=== PATIENT | male | born 1930 | race Caucasian/White ===

== ENCOUNTER → 2016-06-30 | Outpatient (CLI) | payer OTHER ==
[~2016-06-30] MED LIST: ACETAMINOPHEN325 M1 PO; ADULT LOW DOSE81 MG PO; ADVAIR 250-501 EACH IH; ALIGN4 MG PO; ASPIRIN81 MG PO; AVELOX OR; BISACODYL SUPP10 MG RE; CANASA1000 MG PO; CANASA1000 MG RECTAL; CHOLESTEROL MED PO; CIPRO500 MG PO; COLACE100 MG PO; COMBIVENT IN; ELIQUIS5 MG PO; FAMOTIDINE 10 M10 MG PO; FEVERALL JR 32325 MG RE; FLAGYL500 MG PO; FLAXSEED1000 MG PO; FLECAINIDE ACET50 M1 PO; GLUCOSA-CHOND-1 EACH PO; HYDROCODON-ACE1 EAC7 PO; HYDROXYZINE PAM50 MG PO; LANOXIN 0.250.25 M1 PO; MOM; MUCINEX DM TABL1 TA1 PO; MULTI VITAMIN1 EACH PO; MYLANTA 12 OZ355 M1 PO; NEURONTIN 300300 M1 PO; OMEPRAZOLE40 MG PO; PREDNISONE 10 M10 M1 PO; PREDNISONE 20 M20 MG PO; SENOKOT-S TABL1 EACH PO; SIMVASTATIN20 MG PO; VITAMIN E100 UNI2 PO
== END ==
LOC: RAD 07:57
DX: R05 Cough (principal)

== ENCOUNTER → 2016-07-08 | Outpatient (CLI) | payer OTHER | LOC: CAT 08:36 | DX: R91.1 Solitary pulmonary nodule (principal); M47.814 Spondylosis without myelopathy or radiculopathy, thoracic region; K80.20 Calculus of gallbladder without cholecystitis without obstruction ==

== ENCOUNTER 2016-09-15 08:41 | Inpatient (IN) | payer OTHER ==
[~2016-09-15] VITALS: Ht 177.8 cm; Wt 83.5 kg
[2016-09-15 09:10] VITALS: BP 124/74
[2016-09-15 15:18] LABS: URINE BILIRUBIN NEGATIVE (Negative); URINE BLOOD TRACE (Negative); URINE COLOR YELLOW; URINE GLUCOSE-RANDOM* NEGATIVE (Negative); URINE KETONES TRACE (Negative); URINE LEUKOCYTES-REFLEX NEGATIVE (Negative); URINE PROTEIN (DIPSTICK) NEGATIVE (Negative); URINE SPECIFIC GRAVITY <= 1.005 (1.003-1.035); URINE UROBILINOGEN 0.2 E.U./dl (0.2-1.0)
[2016-09-15 17:03] LABS: HEMATOCRIT 42.1 % (42.0-52.0); HEMOGLOBIN 14.2 gm/dL (14.0-18.0); MCH 31.5 pg (26.0-34.0); MCHC 33.7 g/dL (28.0-37.0); MCV 93.5 fL (80.0-100.0); RBC 4.51 mil/uL (4.50-6.00); RDW 14.1 % (10.5-14.5); WBC 10.6 thou/uL (4.0-11.0)
[2016-09-15 17:14] LABS: CALCIUM 9.1 mg/dL (8.5-10.1); POTASSIUM 4.1 mmol/L (3.5-5.1)
[2016-09-15 20:00] VITALS: BP 122/62
[2016-09-16] VITALS (7 sets, daily range): BP systolic 141–168; BP diastolic 61–82
[2016-09-16 10:00] LABS: INR 1.1; PROTIME 11.4 Seconds (9.3-11.4)
[2016-09-17 04:22] VITALS: BP 121/65
[2016-09-17 07:20] VITALS: BP 94/51
[2016-09-17] MEDS ORDERED: TIZANIDINE HCL 22 M1 PO (07:54)
[2016-09-17 16:02] VITALS: BP 81/46
[2016-09-17 19:18] VITALS: BP 99/56
[2016-09-18] MEDS ORDERED: HYDROCODON-ACE1 EAC7 PO (07:25)
[2016-09-18 08:58] VITALS: BP 105/54
[2016-09-18 15:47] VITALS: BP 104/55
[2016-09-18 19:18] VITALS: BP 120/57
[2016-09-19 04:47] VITALS: BP 131/62
[2016-09-19 07:30] VITALS: BP 131/63
[2016-09-19 15:35] VITALS: BP 124/52
[2016-09-19 19:15] VITALS: BP 142/73
[2016-09-20 03:45] VITALS: BP 133/74
[2016-09-20 07:20] VITALS: BP 137/68
== END 2016-09-20 13:10 | DRG 517 ==
LOC: 5S 08:41
PROVIDERS: Family Medicine; Radiology Vascular & Interventional Radiology
PROC: 0PU43JZ Supplement Thoracic Vertebra with Synthetic Substitute, Percutaneous Approach (ICD-10-PCS; principal; 2016-09-16)
PROC: 0PS43ZZ Reposition Thoracic Vertebra, Percutaneous Approach (ICD-10-PCS; principal; 2016-09-16)
DX: M48.54XA Collapsed vertebra, not elsewhere classified, thoracic region, initial encounter for fracture (principal); Z96.652 Presence of left artificial knee joint; M10.9 Gout, unspecified; Z96.649 Presence of unspecified artificial hip joint; K21.9 Gastro-esophageal reflux disease without esophagitis; I48.91 Unspecified atrial fibrillation; K52.9 Noninfective gastroenteritis and colitis, unspecified; E78.5 Hyperlipidemia, unspecified; Z86.718 Personal history of other venous thrombosis and embolism; Z79.899 Other long term (current) drug therapy
CPT/HCPCS: 10785; 50850; 62110; 62900; 70005

== ENCOUNTER 2017-02-11 08:00 | Inpatient (IN) | payer OTHER ==
[~2017-02-11] VITALS: Ht 177.8 cm; Wt 79.4 kg
--- NOTE | ~2017-02-11 | EKG ---
[place] [address] [facility] [place] [address] ELECTROCARDIOGRAM REPORT Name: JIMI ANGLIN [id number] Admission: 02/11/17 Attend Phys: Discharge: Date of : 10/29/[birth year] Report #: [id number] THIS REPORT FOR: //name// [facility] ED Test Date: 2017-02-11 Test Time: 08:20:39 Pat Name: JMII ANGLIN Department: Room: Gender: Director Internal Communications: MELVIN : 1930 Requested By: Tahira Aiken Order Number: [id number] MD: Da Patel Measurements Intervals [place] Rate: 95 P: 34 MD: 197 QRS: 39 QRSD: 79 T: 23 QT: 339 QTc: 426 Interpretive Statements Sinus rhythm No significant abnormality Compared to ECG 06/24/2009 08:28:15 Sinus tachycardia no longer present Electronically Signed On 02-11-2017 9:03:14 PIPE INSTALLER by Da Patel [email or web address] <ELECTRONICALLY SIGNED> By: Da Patel MD, [facility] 02/11/17902 9 9 Da Patel MD, FACC /EPI
[~2017-02-11 08:00] MED LIST changes: +TIZANIDINE HCL 22 M1 PO
[2017-02-11 08:05] VITALS: BP 94/56
[2017-02-11 08:42] LABS: HEMATOCRIT 40.6 % (42.0-52.0); HEMOGLOBIN 13.5 gm/dL (14.0-18.0); MCHC 33.3 g/dL (28.0-37.0); MCV 93.3 fL (80.0-100.0); PLATELET COUNT 298 thou/uL (150-400); RBC 4.35 mil/uL (4.50-6.00); RDW 13.5 % (10.5-14.5)
[2017-02-11 08:45] LABS: MANUAL DIFF YES
[2017-02-11 08:47] LABS: ANION GAP 6 mmol/L (7-16); BUN 20 mg/dL (7-18); CALCIUM 9.3 mg/dL (8.5-10.1); CHLORIDE 103 mmol/L (98-107); CO2 30 mmol/L (21-32); CREATININE 1.3 mg/dL (0.7-1.3); GLUCOSE 165 mg/dL (74-106); SODIUM 139 mmol/L (136-145)
[2017-02-11 08:56] LABS: TROPONIN-I < 0.04 ng/mL (<0.06)
[2017-02-11 09:01] LABS: ABSOLUTE NEUTROPHILS 14.1 thou/uL (1.4-8.2); TOTAL CELL COUNT 100
[2017-02-11 09:02] LABS: ANISOCYTOSIS SLIGHT
[2017-02-11 09:43] LABS: URINE BILIRUBIN NEGATIVE (Negative); URINE BLOOD NEGATIVE (Negative); URINE COLOR YELLOW; URINE GLUCOSE-RANDOM* NEGATIVE (Negative); URINE KETONES NEGATIVE (Negative); URINE LEUKOCYTES-REFLEX NEGATIVE (Negative); URINE PROTEIN (DIPSTICK) NEGATIVE (Negative)
[2017-02-11 11:22] VITALS: BP 106/54
[2017-02-11 11:59] VITALS: BP 112/56
[2017-02-11 12:25] VITALS: BP 112/57
[2017-02-11 16:09] VITALS: BP 98/48
[2017-02-11 20:15] VITALS: BP 92/50
[2017-02-12 04:02] VITALS: BP 114/54
[2017-02-12 06:29] LABS: HEMATOCRIT 35.2 % (42.0-52.0); HEMOGLOBIN 11.7 gm/dL (14.0-18.0); MCH 31.2 pg (26.0-34.0); MCHC 33.2 g/dL (28.0-37.0); MCV 94.2 fL (80.0-100.0); RBC 3.73 mil/uL (4.50-6.00); RDW 13.7 % (10.5-14.5); WBC 8.1 thou/uL (4.0-11.0)
[2017-02-12 06:50] LABS: ALBUMIN 2.9 g/dL (3.4-5.0); CALCIUM 8.5 mg/dL (8.5-10.1); CREATININE 1.1 mg/dL (0.7-1.3); POTASSIUM 3.9 mmol/L (3.5-5.1); TOTAL BILIRUBIN 1.2 mg/dL (<0.1-1.0); TOTAL PROTEIN 6.1 g/dL (6.4-8.2)
[2017-02-12 07:35] VITALS: BP 107/47
[2017-02-12 16:15] VITALS: BP 107/47
[2017-02-12 20:00] VITALS: BP 149/57
[2017-02-13 04:30] VITALS: BP 156/85
[2017-02-13 07:35] VITALS: BP 98/45
[2017-02-13 10:44] LABS: CALCIUM 8.6 mg/dL (8.5-10.1); CREATININE 0.9 mg/dL (0.7-1.3); POTASSIUM 3.5 mmol/L (3.5-5.1)
[2017-02-13 16:00] VITALS: BP 112/59
[2017-02-13 19:13] VITALS: BP 120/60
[2017-02-14 03:23] VITALS: BP 125/69
[2017-02-14 08:44] VITALS: BP 116/57
[2017-02-14 15:50] VITALS: BP 132/65
[2017-02-14 19:10] VITALS: BP 107/44
[2017-02-15 03:45] VITALS: BP 128/62
[2017-02-15 08:16] VITALS: BP 116/66
[2017-02-15 11:27] LABS: HEMATOCRIT 35.6 % (42.0-52.0); HEMOGLOBIN 11.8 gm/dL (14.0-18.0); MCH 31.3 pg (26.0-34.0); MCHC 33.3 g/dL (28.0-37.0); MCV 94.1 fL (80.0-100.0); RBC 3.79 mil/uL (4.50-6.00); RDW 13.2 % (10.5-14.5); WBC 8.6 thou/uL (4.0-11.0)
[2017-02-15 11:45] LABS: ALBUMIN 2.6 g/dL (3.4-5.0); CALCIUM 8.8 mg/dL (8.5-10.1); CREATININE 0.9 mg/dL (0.7-1.3); POTASSIUM 3.6 mmol/L (3.5-5.1); TOTAL BILIRUBIN 1.5 mg/dL (<0.1-1.0); TOTAL PROTEIN 6.6 g/dL (6.4-8.2)
[2017-02-15 15:23] VITALS: BP 03/57
[2017-02-15 20:00] VITALS: BP 105/53
[2017-02-16 04:30] VITALS: BP 140/73
[2017-02-16 10:30] VITALS: BP 140/73
[2017-02-16 15:29] VITALS: BP 115/48
[2017-02-16 19:27] VITALS: BP 120/61
[2017-02-17 04:55] VITALS: BP 121/54
[2017-02-17 07:55] VITALS: BP 115/50
[2017-02-17] MEDS ORDERED: PREDNISONE 10 M10 MG PO (12:39)
[2017-02-17] MEDS ORDERED: AUGMENTIN 875-1 EACH PO (12:41)
== END 2017-02-17 15:09 | DRG 871 ==
LOC: ER 08:00 → 4E 10:38 → EROBS 10:38 → 4E 12:02
PROVIDERS: Emergency Medicine; Family Medicine
DX: A41.9 Sepsis, unspecified organism (principal); J69.0 Pneumonitis due to inhalation of food and vomit; N17.9 Acute kidney failure, unspecified; Z96.652 Presence of left artificial knee joint; M11.20 Other chondrocalcinosis, unspecified site; Z96.649 Presence of unspecified artificial hip joint; I50.9 Heart failure, unspecified; Z86.718 Personal history of other venous thrombosis and embolism; Z87.891 Personal history of nicotine dependence
CPT/HCPCS: 10183

== ENCOUNTER 2017-02-24 07:57 | Inpatient (IN) | payer OTHER ==
[~2017-02-24] VITALS: Ht 177.8 cm; Wt 81.0 kg
[2017-02-24] VITALS (7 sets, daily range): BP systolic 99–124; BP diastolic 50–56
--- NOTE | ~2017-02-24 | EKG ---
[address] [address] ELECTROCARDIOGRAM REPORT Name: LINNETTE,JIMI Gunter Room #: 431-P ADM IN M.R.#: [id number] Admission: 02/24/17 Attend Phys: Ritchie Epps MD Discharge: Date of : 10/29/28 Report #: [id number] THIS REPORT FOR: //name// 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
[~2017-02-24 07:57] MED LIST changes: +AUGMENTIN 875-1 EACH PO; +PREDNISONE 10 M10 MG PO
[2017-02-24 08:55] LABS: HEMATOCRIT 39.3 % (42.0-52.0); MCH 31.1 pg (26.0-34.0); MCHC 33.1 g/dL (28.0-37.0); MCV 93.9 fL (80.0-100.0); PLATELET COUNT 398 thou/uL (150-400); RBC 4.19 mil/uL (4.50-6.00); RDW 13.6 % (10.5-14.5); WBC 20.5 thou/uL (4.0-11.0)
[2017-02-24 09:00] LABS: MANUAL DIFF YES
[2017-02-24 09:02] LABS: CALCIUM 8.9 mg/dL (8.5-10.1); CREATININE 0.9 mg/dL (0.7-1.3); POTASSIUM 3.6 mmol/L (3.5-5.1)
[2017-02-24 09:31] LABS: ABSOLUTE NEUTROPHILS 18.7 thou/uL (1.4-8.2); ATYPICAL LYMPHS 2 %; TOTAL CELL COUNT 100
[2017-02-24 09:33] LABS: LARGE PLATELETS RARE; PLATELET ESTIMATE NORMAL
[2017-02-25] VITALS: BP 109/60
[2017-02-25 04:00] VITALS: BP 105/48
[2017-02-25 06:16] LABS: HEMATOCRIT 35.2 % (42.0-52.0); HEMOGLOBIN 11.6 gm/dL (14.0-18.0); MCH 30.8 pg (26.0-34.0); MCV 93.6 fL (80.0-100.0); RBC 3.76 mil/uL (4.50-6.00); RDW 13.9 % (10.5-14.5); WBC 8.8 thou/uL (4.0-11.0)
[2017-02-25 06:26] LABS: CALCIUM 8.2 mg/dL (8.5-10.1); CREATININE 0.8 mg/dL (0.7-1.3); POTASSIUM 3.9 mmol/L (3.5-5.1)
[2017-02-25 09:25] VITALS: BP 121/58
[2017-02-25 15:35] VITALS: BP 140/77
[2017-02-25 20:30] VITALS: BP 124/54
[2017-02-26 04:02] VITALS: BP 108/60
[2017-02-26 07:40] VITALS: BP 118/58
[2017-02-26] MEDS ORDERED: LASIX 40 MG TAB40 M2 PO (08:35)
[2017-02-26] MEDS ORDERED: KLOR-CON 10 ER10 MEQ PO (08:37)
== END 2017-02-26 14:56 | DRG 871 ==
LOC: ER 07:57 → 4E 09:40 → EROBS 09:40 → 4E 10:58
PROVIDERS: Emergency Medicine; Family Medicine
DX: A41.9 Sepsis, unspecified organism (principal); J69.0 Pneumonitis due to inhalation of food and vomit; Z96.652 Presence of left artificial knee joint; M10.9 Gout, unspecified; Z96.649 Presence of unspecified artificial hip joint; R13.10 Dysphagia, unspecified; W18.39XA Other fall on same level, initial encounter; Y93.89 Activity, other specified; Y92.89 Other specified places as the place of occurrence of the external cause; Z90.49 Acquired absence of other specified parts of digestive tract; Z87.891 Personal history of nicotine dependence; Z79.899 Other long term (current) drug therapy; Z86.718 Personal history of other venous thrombosis and embolism; Z87.81 Personal history of (healed) traumatic fracture; Y99.8 Other external cause status
CPT/HCPCS: 10783

== ENCOUNTER → 2017-05-17 | Outpatient (CLI) | payer OTHER ==
[~2017-05-17] MED LIST changes: +KLOR-CON 10 ER10 MEQ PO; +LASIX 40 MG TAB40 M2 PO; +LOPRESSOR25 PO
== END ==
LOC: RAD 09:25
DX: J18.9 Pneumonia, unspecified organism (principal); J98.11 Atelectasis

== ENCOUNTER 2018-02-25 04:07 | Inpatient (IN) | payer OTHER ==
[~2018-02-25] VITALS: Ht 177.8 cm; Wt 82.3 kg
[2018-02-25] VITALS (9 sets, daily range): BP systolic 111–152; BP diastolic 58–91
--- NOTE | ~2018-02-25 | HC ---
[facility] [place] [address] CONSULTATION Name: JIMI ANGLIN Lyirc Room #: 204-P [facility] IN .R.#: [id number] Admission: 02/25/18 Attend Phys: Ritchie Epps MD Discharge: Date of : 10/29/[birth year] Report #: [id number] THIS REPORT FOR: //name// CC: Da Epps HISTORY OF PRESENT ILLNESS: This is a very pleasant 87-year-old gentleman without prior history of coronary artery disease, but with a prior history of atrial fibrillation, who presented with the development of substernal discomfort. The patient apparently woke at approximately 01:00 a.m. with substernal discomfort which was the most severe he has ever had. He stated that the discomfort was substernal and he was unable to notice any significant worsening of his shortness of breath since he is on home O2. The patient's spouse gave him an aspirin and the discomfort improved somewhat, but it persisted until visiting the Emergency Room. It was 2/10 in intensity at that time. Upon further questioning, he states that he had an upset stomach, but no recent episodes of chest discomfort, although upon further questioning, he has been getting "slower over the last couple of weeks" as described by family. He denies any palpitations. No syncope or near syncope. No dependent or nondependent edema worsening. He does have orthostatic hypotension and does take midodrine. ALLERGIES: No known drug allergies. MEDICATIONS: Medications at home were prednisone, midodrine and Eliquis 5 mg. PAST SURGICAL HISTORY: Significant for: 1. Hip fracture. 2. Left knee replacement. 3. Colonoscopy. PAST MEDICAL HISTORY: Significant for: 1. Atrial fibrillation. 2. History of left leg DVT. 3. Gouty arthritis. SOCIAL HISTORY: The patient is a former smoker. He does consume alcohol socially. He does not follow a particular exercise regimen or dietary restrictions. DIAGNOSTIC STUDIES: Electrocardiogram: Normal sinus rhythm, nonspecific ST-T wave changes present; no acute findings. No change from 11/2017. LABORATORY DATA: Laboratory demonstrates a troponin of 0.6. Potassium of 3.6, BUN and creatinine are 21 and 1.0. BNP is 218. H and H are 15.1 and 44.4 with a platelet count of 279,000. [address] [address] CONSULTATION Name: JIMI ANGLIN Room #: [facility] IN [facility].#: [id number] Admission: 02/25/18 Attend Phys: Ritchie Epps MD Discharge: Date of : 10/29/28 Report #: [id number] RADIOLOGIC DATA: Chest x-ray is pending. REVIEW OF SYSTEMS: Except for the symptoms previously mentioned and those commensurate with comorbid state, the 10-point review of system is negative. PHYSICAL EXAMINATION: GENERAL: Well-developed and well-nourished white male, resting comfortably, in no acute distress. VITAL SIGNS: Noted and reviewed in the chart. HEENT: Normocephalic, atraumatic. Pupils are equal, round, reactive to light and accommodation. Extraocular muscles are intact. Sclerae and conjunctivae are anicteric. NECK: JVD is normal. Carotid upstrokes are bilaterally symmetrical. No bruits are heard. No thyromegaly. No lymphadenopathy. LUNGS: Clear to auscultation. No wheezes, rhonchi or crackles. No CVA tenderness. CARDIAC: Demonstrates a regular rhythm. Normal first and second heart sounds. No ventricular or atrial gallops, no rubs noted. No murmurs. No lifts or heaves, PMI normal. ABDOMEN: Soft, nontender, nondistended. Normal bowel sounds. EXTREMITIES: Without cyanosis, clubbing or edema. Distal pulses are intact. DTRs symmetrical. NEUROLOGIC: Cranial nerves 2-12 are grossly normal and symmetrical. PSYCHIATRIC: Alert, oriented with normal affect. SKIN: Warm and dry. IMPRESSION: 1. Chest pain, suspicious for unstable angina. Does have an elevated troponin and I suspect this is not his baseline. I did discuss options of optimization of care. I did discuss invasive versus noninvasive. The patient does not want anything aggressive or invasive done at the moment. The family is wondering whether stenting would be reasonable and discussed with them the risks and options available. In view of the patient wanting no aggressive management and a low risk of emergent surgical revascularization with stenting, we are going to try medical treatment over the weekend, at least since the staffing and ancillary personnel is low on weekends. We look forward to, say, 2-day window to try medical management. I did discuss that if he de-stabilizes and develops recurrent angina, uncontrolled by medical intervention, then cardiac catheterization would be considered and both the patient and family agreed. Risks, complications and alternatives of cath, angioplasty and conscious sedation discussed with the patient. They voice understanding and wish to proceed if warranted. A low-level symptom limited treadmill may be appropriate to determine the effectiveness of medical regimen and we can do this on Tuesday if all agree. 2. Atrial fibrillation, paroxysmal, anticoagulated, no rate control. I am going to initiate beta blockade, etc., for the antianginal regimen above and [facility] [address] [place] [address] CONSULTATION Name: JIMI ANGLIN Room #: 204-P ADM IN .R.#: [id number] Admission: 02/25/18 Attend Phys: Ritchie Epps MD Discharge: Date of : 10/29/[birth year] Report #: [id number] this should bring symptoms under better control. We will see how this progresses. I am going to stop the Eliquis for now and use heparin protocol in case angiography is needed. 3. Gouty arthritis, not an issue at this time. He is on prednisone. 4. Deep venous thrombosis by history, on treatment. <ELECTRONICALLY SIGNED> By: Gamal Gong MD 02/25/18 2119 0913 1016 Gamal Gong MD /nt
--- NOTE | ~2018-02-25 | EKG ---
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: DRE : 1930 Requested By: Tahira Aiken Order Number: [id number] MD: Gamal Gong Measurements Intervals [place] Rate: 65 P: 24 [place]: 200 QRS: 20 QRSD: 83 T: 5 QT: 419 QTc: 436 Interpretive Statements Sinus rhythm Atrial premature complexes Compared to ECG 11/26/2017 10:24:45 Atrial premature complex(es) now present Ventricular premature complex(es) no longer present Electronically Signed On 02-26-2018 23:19:51 BINDER FIXER by aGmal Gong [email or web address] <ELECTRONICALLY SIGNED> By: Gamal Gong MD 02/26/18 2319 0425 0425 Gamal Gong MD /EPI
--- NOTE | ~2018-02-25 | EKG ---
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 Mixer: KARENA : 1930 Requested By: Da Patel Order Number: [id number] MD: Da Patel Measurements Intervals [place] Rate: 64 P: 0 AL: 229 QRS: 14 QRSD: 80 T: -17 QT: 436 QTc: 450 Interpretive Statements Sinus rhythm Low voltage, precordial leads Borderline T abnormalities, inferior leads Compared to ECG 02/25/2018 04:25:44 Atrial premature complex(es) no longer present Electronically Signed On 02-27-2018 8:43:34 PRESSROOM SUPERVISOR by Da Patel [email or web address] <ELECTRONICALLY SIGNED> By: Da Patel MD, [facility] 02/27/18 0843 6 6 Da Patel MD, [facility] /EPI
--- NOTE | ~2018-02-25 | EKG ---
[address] [place] [address] ELECTROCARDIOGRAM REPORT Name: JIMI ANGLIN Room #: 204-P ADM IN M.R.#: [id number] Admission: 02/25/18 Attend Phys: Ritchie Epps MD Discharge: Date of : 10/29/28 Report #: [id number] THIS REPORT FOR: //name// [facility] Test Date: 2018-02-28 Test Time: 06:49:50 Pat Name: JIMI ANGLIN Department: Room: 204 P Gender: M Tire Man: KARENA : 1930 Requested By: Da Patel Order Number: [id number] MD: Da Patel Measurements Intervals [place] Rate: 57 P: [place]: QRS: 24 QRSD: 88 T: -9 QT: 439 QTc: 428 Interpretive Statements Sinus bradycardia Borderline low voltage, extremity leads Compared to ECG 02/27/2018 08:27:16 No significant change was found Electronically Signed On 02-28-2018 8:58:48 COMPOSITE LAYUP WORKER by Da Patel [email or web address] <ELECTRONICALLY SIGNED> By: Da Patel MD, [facility] 02/28/18 0858 0649 Da Patel MD, [facility] /EPI
--- NOTE | ~2018-02-25 | EKG ---
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 : 1930 Requested By: Ritchie Epps Order Number: [id number] MD: Gamal Gong Measurements Intervals [place] Rate: 65 P: 24 NM: 200 QRS: 20 QRSD: 83 T: 5 QT: 419 QTc: 436 Interpretive Statements Sinus rhythm Atrial premature complexes Compared to ECG 11/26/2017 10:24:45 Atrial premature complex(es) now present Ventricular premature complex(es) no longer present Electronically Signed On 02-26-2018 23:18:33 CASE PICKER by Gamal Gong [email or web address] <ELECTRONICALLY SIGNED> By: Gamal Gong MD 02/26/18 2318 0425 0425 Gamal Gong MD /EPI
--- NOTE | ~2018-02-25 | 2DMMODE ---
[facility] [address] [place] [address] 2 D/M-MODE ECHOCARDIOGRAM Name: JIMI ANGLIN Room #: 204-P [facility]#: [id number] Admission: 02/25/18 Attend Phys: Ritchie Epps, Discharge: Date of : 10/29/[birth year] Date of Service: 02/25/18 1624 Report #: [id number] THIS REPORT FOR: //name// APPROVED REPORT Study performed: 02/25/2018 12:41:34 EXAM: Comprehensive 2D, Doppler, and color-flow Echocardiogram Patient Location: In-Patient Room #: 204 Status: routine BSA: 1.95 HR: 59 bpm BP: 124/65 mmHg Other Information Study Quality: Adequate Indications Chest Pain Unstable Angina 2D Dimensions IVSd: 14.71 (7-11mm) LVOT Diam: 21.65 (18-24mm) LVDd: 48.21 mm PWd: 11.87 (7-11mm) Ascending Ao: 33.82 (22-36mm) LVDs: 36.63 (25-40mm) Left Atrium: 37.44 (27-40mm) Aortic Root: 33.92 mm IVC: 2.10 mm Volumes Left Atrial Volume (Systole) Single Plane 4CH: 44.21 mL Single Plane 2CH: 60.17 mL Aortic Valve AoV Peak Ze.: 1.66 m/s AO Peak Gr.: 11.08 mmHg LVOT Max P.42 mmHg AO Mean Gr.: 5.14 mmHg LVOT Mean P.24 mmHg AO V2 Mean: 1.02 m/s LVOT Max V: 0.78 m/s AO V2 VTI: 33.98 cm LVOT Mean V: 0.52 m/s ALEXANDR (VTI): 1.92 cm2 LVOT V1 VTI: 17.70 cm ALEXANDR Vmax: 1.72 cm2 SV (LVOT): 65.13 mL Mitral Valve [facility] [place] [address] 2 D/M-MODE ECHOCARDIOGRAM Name: LINNETTEJIMI Room #: 204-P [facility] IN [facility].#: [id number] Admission: 02/25/18 Attend Phys: Ritchie Epps, Discharge: Date of : 10/29/28 Date of Service: 02/25/18 1624 Report #: [id number] E/A Ratio: 0.6 MV Decel. Time: 343.06 ms MV E Max Ze.: 0.51 m/s MV A Ze.: 0.81 m/s MV PHT: 99.49 ms Pulmonary Valve PV Peak Ze.: 0.73 m/s PV Peak Gr.: 2.13 mmHg Pulmonary Vein P Vein A: 0.32 m/s P Vein A Dur.: 141.9 msec Tricuspid Valve RAP Estimate: 3.00 mmHg Left Ventricle The left ventricle is normal size. Moderate concentric left ventricular hypertrophy. Left ventricular systolic function is borderline. LVEF is 45-50%. Grade I - abnormal relaxation pattern. Right Ventricle The right ventricle is normal size. There is normal right ventricular wall thickness. The right ventricular systolic function is normal. Atria The left atrium size is normal. Right atrium is at the upper limits of normal. Aortic Valve Aortic valve is calcified. The non-coronary cusp shows decreased opening. Trace aortic regurgitation. Calculated aortic valve area is 1.9 cm2 with maximum pressure gradient of 11 mmHg and mean pressure gradient of 5 mmHg. Mitral Valve The mitral valve is normal in structure. Trace mitral regurgitation. Tricuspid Valve The tricuspid valve is normal in structure. Trace tricuspid regurgitation. Pulmonic Valve [address] [address] 2 D/M-MODE ECHOCARDIOGRAM Name: MELANIE ANGLINLIA Gunter Room #: 204-P [facility] IN [facility]#: [id number] Admission: 02/25/18 Attend Phys: Ritchei Epps, Discharge: Date of : 10/29/[birth year] Date of Service: 02/25/18 1624 Report #: [id number] Pulmonic valve is not well visualized. Trace pulmonic regurgitation. Great Vessels The aortic root is normal in size. IVC is not well visualized. Pericardium There is no pericardial effusion. <Conclusion> The left ventricle is normal size. LVEF is 45-50%. Moderate concentric left ventricular hypertrophy. Right atrium is at the upper limits of normal. Aortic valve is calcified. The non-coronary cusp shows decreased opening. Trace aortic regurgitation. Calculated aortic valve area is 1.9 cm2 with maximum pressure gradient of 11 mmHg and mean pressure gradient of 5 mmHg. The mitral valve is normal in structure. Trace mitral regurgitation. The tricuspid valve is normal in structure. Trace tricuspid regurgitation. Pulmonic valve is not well visualized. Trace pulmonic regurgitation. There is no pericardial effusion. <ELECTRONICALLY SIGNED> By: Gamal Gong MD 02/25/18 1624 1624 1624 Gamal Gong MD /INF
[2018-02-25] MEDS ORDERED: [UNRECOGNIZED DRUG - OTHER] (04:13)
[2018-02-25] MEDS ORDERED: MIDODRINE HCL 55 M1 PO (04:14)
[2018-02-25 04:39] LABS: ABSOLUTE NEUTROPHILS 5.4 thou/uL (1.4-8.2); BASOPHILS 0.9 % (0.0-2.0); EOSINOPHILS 0.4 % (0.0-3.0); HEMATOCRIT 44.4 % (42.0-52.0); HEMOGLOBIN 15.1 gm/dL (14.0-18.0); LYMPHOCYTES 22.4 % (24.0-44.0); MCH 31.9 pg (26.0-34.0); MCV 93.6 fL (80.0-100.0); MONOCYTES 8.8 % (1.0-8.0); PLATELET COUNT 279 thou/uL (150-400); POLYS 67.5 % (36.0-66.0); RBC 4.75 mil/uL (4.50-6.00); RDW 14.4 % (10.5-14.5)
[2018-02-25 04:47] LABS: CALCIUM 8.9 mg/dL (8.5-10.1); POTASSIUM 3.6 mmol/L (3.5-5.1)
[2018-02-25 04:58] LABS: TROPONIN-I 0.62 ng/mL (<0.06)
[2018-02-25 07:59] LABS: PROTIME 10.4 Seconds (9.3-11.4)
[2018-02-26] VITALS (7 sets, daily range): BP systolic 91–139; BP diastolic 37–75
[2018-02-26 13:01] LABS: CALCIUM 9.3 mg/dL (8.5-10.1); POTASSIUM 4.1 mmol/L (3.5-5.1)
[2018-02-27] VITALS (7 sets, daily range): BP systolic 92–124; BP diastolic 50–63
[2018-02-28 04:35] LABS: HEMATOCRIT 39.7 % (42.0-52.0); HEMOGLOBIN 13.3 gm/dL (14.0-18.0); MCH 31.2 pg (26.0-34.0); MCHC 33.4 g/dL (28.0-37.0); MCV 93.2 fL (80.0-100.0); RBC 4.26 mil/uL (4.50-6.00); RDW 14.4 % (10.5-14.5); WBC 12.2 thou/uL (4.0-11.0)
[2018-02-28 05:10] VITALS: BP 118/61
[2018-02-28 07:45] VITALS: BP 120/64
[2018-02-28 11:25] VITALS: BP 100/52
[2018-02-28 15:40] VITALS: BP 109/54
[2018-02-28 19:20] VITALS: BP 150/80
[2018-03-01 04:48] VITALS: BP 125/65
[2018-03-01 07:19] VITALS: BP 125/65
[2018-03-01 11:47] VITALS: BP 109/55
[2018-03-01 14:18] VITALS: BP 100/58
[2018-03-01 19:45] VITALS: BP 108/53
[2018-03-02 03:39] VITALS: BP 121/71
[2018-03-02 07:44] VITALS: BP 114/55
[2018-03-02] MEDS ORDERED: METOPROLOL SUCC25 M1 PO (08:39)
[2018-03-02] MEDS ORDERED: ATORVASTATIN CA40 MG PO (08:39)
[2018-03-02] MEDS ORDERED: ASPIR 8181 MG PO (08:40)
[2018-03-02] MEDS ORDERED: PREDNISONE 10 M10 MG PO (08:41)
[2018-03-02 11:12] VITALS: BP 92/51
[2018-03-02 15:22] VITALS: BP 91/56
[2018-03-02 19:15] VITALS: BP 121/48
[2018-03-03 05:32] VITALS: BP 138/73
[2018-03-03 07:17] LABS: HEMATOCRIT 41.5 % (42.0-52.0); HEMOGLOBIN 14.1 gm/dL (14.0-18.0); MCH 31.7 pg (26.0-34.0); MCHC 33.9 g/dL (28.0-37.0); MCV 93.4 fL (80.0-100.0); RBC 4.44 mil/uL (4.50-6.00); RDW 14.4 % (10.5-14.5)
[2018-03-03 08:00] VITALS: BP 137/67
[2018-03-03 12:00] VITALS: BP 102/52
== END 2018-03-03 15:10 | DRG 280 ==
LOC: ER 04:07 → 2N 05:51 → EROBS 05:51 → 2N 07:44
PROVIDERS: Emergency Medicine; Family Medicine
DX: I21.4 Non-ST elevation (NSTEMI) myocardial infarction (principal); J96.01 Acute respiratory failure with hypoxia; J98.11 Atelectasis; I25.110 Atherosclerotic heart disease of native coronary artery with unstable angina pectoris; M10.9 Gout, unspecified; Z96.652 Presence of left artificial knee joint; I48.0 Paroxysmal atrial fibrillation; I95.1 Orthostatic hypotension; M35.3 Polymyalgia rheumatica; Z87.81 Personal history of (healed) traumatic fracture; Z86.718 Personal history of other venous thrombosis and embolism; Z87.891 Personal history of nicotine dependence; Z79.01 Long term (current) use of anticoagulants; Z79.82 Long term (current) use of aspirin; Z79.899 Other long term (current) drug therapy
CPT/HCPCS: 10081

== ENCOUNTER 2018-03-20 03:23 | Inpatient (IN) | payer OTHER ==
[2018-03-20] VITALS (8 sets, daily range): BP systolic 93–127; BP diastolic 38–96
[~2018-03-20] VITALS: Ht 177.8 cm; Wt 83.3 kg
--- NOTE | ~2018-03-20 | EKG ---
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 : 1930 Requested By: Ritchie Epps Order Number: [id number] MD: Da Patel Measurements Intervals [place] Rate: 80 P: 36 [place]: 167 QRS: 27 QRSD: 78 T: 73 QT: 434 QTc: 501 Interpretive Statements Sinus rhythm Multiple premature complexes, vent & supraven Early R-wave progression Nonspecific ST segment abnormality Prolonged QT interval Compared to ECG 02/28/2018 06:49:50 premature ventricular and supraventricular complexes are now present early R-wave progression is noted ST segment abnormality is new Electronically Signed On 03-21-2018 8:29:16 [employer] by Da Patel [email or web address] <ELECTRONICALLY SIGNED> By: Da Patel MD, [facility]ACC 03/21/18 0829 0 0 Da Patel MD, FAC /EPI
--- NOTE | ~2018-03-20 | PATH ---
[facility] [address] [place] [address] PATHOLOGY RPT PROCEDURE Name: MIGUEL ANGLIN Room #: 206-P ADM IN M.R.#: [id number] Admission: 03/20/18 Date of : [birth year] Discharge: Report #: [id number] Path Case #: [id number] [facility] Accession Number: [id number] . 01 Material submitted: . ANTRUM BIOPSIES . 01 Clinical history: . Melena Duodenal ulcers rule out H. pylori . 02 Diagnosis: Gastric mucosa, antrum R/O H. pylori, endoscopic biopsy: - Mild reactive gastropathy. - Negative for intestinal metaplasia or atrophy. - Negative for Helicobacter pylori (properly controlled immunohistochemical stain performed). . (IVU:babatunde; 03/22/2018) QMS/03/22/2018 . 02 Electronically signed: . Yina Kowalski MD, Pathologist NPI- [id number] . 01 Gross description: . The specimen is received in formalin, labeled "Miguel Anglin, antrum biopsies" and consists of 2 fragments of soft patterson tissue measuring 0.6 x 0.2 x 0.1 cm and 0.3 x 0.2 x 0.1 cm. They are entirely submitted in A1. (SDY; 03/21/2018) SYU/SYU . 02 Pathologist provided ICD-10: K31.9 . 02 CPT . 767206, V45517 Specimen Comment: A courtesy copy of this report has been sent to Specimen Comment: [phone], . Specimen Comment: Report sent to / DR VOGEL Specimen Comment: A duplicate report has been generated due to demographic updates. Performed at: [address] [id number] MD Jordy Avalos MD Phone: [phone] Performed at: [address] [place] [address] [address] PATHOLOGY RPT PROCEDURE Name: MIGUEL ANGLIN Room #: 206-P [facility] IN M.R.#: [id number] Admission: 03/20/18 Date of : [birth year] Discharge: Report #: [id number] Path Case #: [id number] [address] [id number] MD Yina Kowalski MD Phone: [phone]
--- NOTE | ~2018-03-20 | EKG ---
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 : 1930 Requested By: Ritchie Epps Order Number: [id number] MD: Da Patel Measurements Intervals [place] Rate: 63 P: [place]: QRS: 32 QRSD: 78 T: -26 QT: 459 QTc: 470 Interpretive Statements Sinus rhythm with occasional premature supraventricular Occasional premature ventricular complexes Nonspecific ST and T wave abnormality Compared to ECG 03/21/2018 03:11:54 No significant change was found Electronically Signed On 03-23-2018 8:26:21 CASING WORKER by Da Patel [email or web address] <ELECTRONICALLY SIGNED> By: Da Patel MD, [facility] 03/23/18 0826 1138 1138 Da Patel MD, [facility] /EPI
[~2018-03-20 03:23] MED LIST changes: +ASPIR 8181 MG PO; +ATORVASTATIN CA40 MG PO; +METOPROLOL SUCC25 M1 PO; +MIDODRINE HCL 55 M1 PO; +[UNRECOGNIZED DRUG - OTHER]
[2018-03-20 03:42] LABS: ABSOLUTE NEUTROPHILS 9.6 thou/uL (1.4-8.2); BASOPHILS 0.3 % (0.0-2.0); EOSINOPHILS 0.2 % (0.0-3.0); HEMATOCRIT 27.1 % (42.0-52.0); HEMOGLOBIN 8.8 gm/dL (14.0-18.0); LYMPHOCYTES 25.5 % (24.0-44.0); MCH 30.7 pg (26.0-34.0); MCHC 32.3 g/dL (28.0-37.0); MCV 95.1 fL (80.0-100.0); MONOCYTES 4.7 % (1.0-8.0); PLATELET COUNT 260 thou/uL (150-400); POLYS 69.3 % (36.0-66.0); RBC 2.86 mil/uL (4.50-6.00); RDW 14.6 % (10.5-14.5); WBC 13.8 thou/uL (4.0-11.0)
[2018-03-20] MEDS ORDERED: PREDNISONE 20 M20 MG PO ×2 (03:46→03:47)
[2018-03-20] MEDS ORDERED: DULCOLAX10 MG RECTAL (03:49)
[2018-03-20] MEDS ORDERED: MILK OF MA2400 MG/10 PO (03:49)
[2018-03-20] MEDS ORDERED: TYLENOL EXTRA500 MG PO (03:50)
[2018-03-20] MEDS ORDERED: FLEET ENEMA133 ML RECTAL (03:50)
[2018-03-20 03:51] LABS: CALCIUM 8.5 mg/dL (8.5-10.1); CREATININE 1.5 mg/dL (0.7-1.3); POTASSIUM 4.1 mmol/L (3.5-5.1)
[2018-03-20 03:55] LABS: APTT 21.7 Seconds (24.5-32.8); INR 1.1; PROTIME 11.7 Seconds (9.3-11.4)
[2018-03-21] VITALS (12 sets, daily range): BP systolic 101–132; BP diastolic 35–66
[2018-03-21 03:33] LABS: HEMATOCRIT 20.8 % (42.0-52.0)
[2018-03-22] VITALS (9 sets, daily range): BP systolic 88–140; BP diastolic 48–79
[2018-03-22] MEDS ORDERED: FLAGYL 250 MG250 MG PO (08:07)
[2018-03-22] MEDS ORDERED: CIPRO250 M1 PO (08:07)
[2018-03-22] MEDS ORDERED: PROTONIX40 M1 PO (08:09)
[2018-03-22 08:42] LABS: MCH 31.5 pg (26.0-34.0); MCV 92.6 fL (80.0-100.0); RBC 2.11 mil/uL (4.50-6.00); RDW 15.5 % (10.5-14.5)
[2018-03-22 08:44] LABS: HEMOGLOBIN 6.6 gm/dL (14.0-18.0)
[2018-03-22 08:45] LABS: HEMATOCRIT 19.5 % (42.0-52.0)
[2018-03-22 08:51] LABS: CALCIUM 7.8 mg/dL (8.5-10.1); CREATININE 1.1 mg/dL (0.7-1.3); POTASSIUM 3.8 mmol/L (3.5-5.1)
[2018-03-22 10:56] LABS: % SATURATION 14 % (20-39); IRON 31 ug/dL (65-175); TIBC 218 ug/dL (250-450)
[2018-03-22 14:59] LABS: HEMATOCRIT 25.4 % (42.0-52.0); HEMOGLOBIN 8.6 gm/dL (14.0-18.0)
[2018-03-22 23:06] LABS: HEMATOCRIT 25.5 % (42.0-52.0); HEMOGLOBIN 8.6 gm/dL (14.0-18.0)
[2018-03-23 03:54] VITALS: BP 132/61
[2018-03-23 07:50] VITALS: BP 120/64
[2018-03-23 11:15] VITALS: BP 122/57
== END 2018-03-23 15:19 | DRG 377 ==
LOC: ER 03:23 → EROBS 05:37 → 2N 05:37
PROVIDERS: Emergency Medicine; Family Medicine; Internal Medicine Gastroenterology
PROC: 0DB68ZX Excision of Stomach, Via Natural or Artificial Opening Endoscopic, Diagnostic (ICD-10-PCS; principal; 2018-03-21)
PROC: 30233N1 Transfusion of Nonautologous Red Blood Cells into Peripheral Vein, Percutaneous Approach (ICD-10-PCS; principal; 2018-03-21)
DX: K29.71 Gastritis, unspecified, with bleeding (principal); N17.0 Acute kidney failure with tubular necrosis; D62 Acute posthemorrhagic anemia; I48.2 Chronic atrial fibrillation; K26.4 Chronic or unspecified duodenal ulcer with hemorrhage; Z96.652 Presence of left artificial knee joint; M10.9 Gout, unspecified; M19.90 Unspecified osteoarthritis, unspecified site; K21.9 Gastro-esophageal reflux disease without esophagitis; E78.5 Hyperlipidemia, unspecified; Z96.649 Presence of unspecified artificial hip joint; K57.31 Diverticulosis of large intestine without perforation or abscess with bleeding; Z96.659 Presence of unspecified artificial knee joint; I25.10 Atherosclerotic heart disease of native coronary artery without angina pectoris; F03.90 Unspecified dementia, unspecified severity, without behavioral disturbance, psychotic disturbance, mood disturbance, and anxiety; R13.12 Dysphagia, oropharyngeal phase; K44.9 Diaphragmatic hernia without obstruction or gangrene; Z86.718 Personal history of other venous thrombosis and embolism; Z87.81 Personal history of (healed) traumatic fracture; Z87.891 Personal history of nicotine dependence; I25.2 Old myocardial infarction; Z79.82 Long term (current) use of aspirin; Z79.899 Other long term (current) drug therapy
CPT/HCPCS: 10081; 62110; 62900; 70005